=== PATIENT | male | born 1945 | race Hispanic/Latino ===

== ENCOUNTER 2022-03-20 08:06 | Outpatient (CLI) | payer MEDICARE | END 2022-03-20 08:07 | disposition home or self-care (01) | LOC: CSHULT 08:06 | PROVIDERS: ATTEND Internal Medicine | DX: Z13.6 Encounter for screening for cardiovascular disorders (principal) | CPT/HCPCS: 76706 ==

== ENCOUNTER 2024-08-11 10:55 | Outpatient (CLI) | payer MEDICARE | END 2024-08-11 10:56 | disposition home or self-care (01) | LOC: CSHMRI 10:55 | PROVIDERS: ATTEND Family Medicine Sports Medicine | DX: M47.22 Other spondylosis with radiculopathy, cervical region (principal); M48.02 Spinal stenosis, cervical region | CPT/HCPCS: 72141 ==